=== PATIENT | male | born 1955 | race Caucasian/White ===

== ENCOUNTER → 2017-02-02 | Outpatient (CLI) | payer MEDICARE ==
[~2017-02-02] MED LIST: ASPIRIN PO; CARTIA XT PO; CIPRO PO; CLARITIN10 MG PO; FLEXERIL PO; FLOMAX0.4 MG PO; GLUCOTROL PO; IBUPROFEN PO; LISINOPRIL PO; LOPID600 MG PO; LORTAB 5/500 TA1 TA1 PO; LORTAB 7.5-5001 TAB PO; METANX TABLET1 TAB PO; METFORMIN HCL500 M1 PO; METFORMIN PO; MOBIC PO; NAPROXEN PO; NASONEX17 GM; PHENERGAN25 MG PO; PYRIDIUM PO; ULTRAM PO; VICODIN 5/500 T1 TAB PO
--- NOTE | ~2017-02-02 | CR213 ---
[facility] Service of [facility] / [facility] RADIOLOGY TEXT RESULTS PATIENT: JONAS GANN LOCATION: [facility] : 53 UNIT #: [id number] AGE: [address]: Eve Bro MD SEX: M ORDER DR: [id number] [facility] [address]. [place], [place] [address] [id number] O MR#: [id number] Acc #: [id number] NAME: JONAS GANN : 1955 SEX: M STUDY DATE/TIME: 02/02/2017 14:26 UNIT: [facility] ROOM: STUDY DESCRIPTION: CR Ribs Unilateral 2 View Rt Attending Physician: Eve Bro M.D. Referring Physician: Eve Bro M.D. Ordering Physician: Eve Bro M.D. Primary Care Physician: Eve Bro M.D. MEDICAL IMAGING REPORT This report is preliminary unless electronic signature is present EXAM Right ribs with PA chest HISTORY Right anterior rib pain x1 month, pain from coughing. FINDINGS PA view of the chest. There is no acute cardiopulmonary disease. No pulmonary contusion, pneumothorax. Detailed views of the right ribs demonstrate no fracture deformity. Soft tissues unremarkable. IMPRESSION Negative right ribs with normal PA chest. Dictated by... Emerald Thomas M.D. THIS IS AN ELECTRONICALLY VERIFIED REPORT Emerald Thomas M.D. at 02/03/2017 8:01 AM SHERRY/max TD: 02/02/2017 20:41 JOB #: [id number] MEDICAL IMAGING REPORT Page 1 of 1 COPY
== END | disposition home or self-care (01) ==
LOC: CRAD 14:14
DX: R07.81 Pleurodynia (principal)
CPT/HCPCS: 71100